=== PATIENT | male | born 1955 | race Caucasian/White ===

== ENCOUNTER 2024-07-20 17:49 | Emergency (ER) | payer MEDICARE, BC ==
[~2024-07-20] VITALS: Ht 175.3 cm; Wt 77.1 kg
[~2024-07-20 17:49] MED LIST: ASPIR 8181 MG PO; AZILECT1 MG PO; CARBIDOPA-LEVO1 EA10; ELMIRON100 MG PO; HYDROXYZINE HCL10 MG PO; LIPITOR10 MG PO; TRICOR145 MG PO
[2024-07-20 18:04] LABS: BASOPHILS % 0.6 % (0.0-1.0); EOSINOPHILS # (AUTO) 0.4 (0.0-0.4); EOSINOPHILS % 5.8 % (0.0-6.0); HEMATOCRIT 43.8 % (38.2-49.6); HEMOGLOBIN 14.2 g/dL (14.0-18.0); LYMPHOCYTES # (AUTO) 3.1 (1.0-3.2); MEAN CORPUSCULAR HEMOGLOBIN 32.3 pg (28-32); MEAN CORPUSCULAR HGB CONC 32.4 g/dL (31-35); MEAN CORPUSCULAR VOLUME 99.5 fL (81-99); MONOCYTES # (AUTO) 0.7 (0.2-0.8); MONOCYTES % 9.1 % (4.4-11.3); NEUTROPHILS % 41.4 % (38.7-80.0); PLATELET COUNT 190 x10e3/uL (140-360); RED CELL DISTRIBUTION WIDTH 12.4 % (11.7-14.4); WHITE BLOOD COUNT 7.26 x10e3/uL (4.8-10.8)
[2024-07-20 18:26] LABS: ALBUMIN 4.3 g/dL (3.5-5.0); ALBUMIN/GLOBULIN RATIO 1.3 (0.8-2.0); ALKALINE PHOSPHATASE 107 IU/L (40-150); ANION GAP 17.2 mmol/L (8-16); BILIRUBIN,TOTAL 0.9 mg/dL (0.2-1.2); BLOOD UREA NITROGEN 15 mg/dL (7-26); BUN/CREATININE RATIO 13 (6-25); CALCIUM 9.6 mg/dL (8.4-10.2); CARBON DIOXIDE 25 mmol/L (22-29); CHLORIDE 103 mmol/L (98-107); CREATINE KINASE 77 IU/L (30-200); CREATININE, SERUM 1.13 mg/dL (0.72-1.25); EST GLOMERULAR FILTRATION RATE 71 ML/MIN (>=60); GLUCOSE 100 mg/dL (74-118); LIPASE 25 U/L (8-78); POTASSIUM 4.2 mmol/L (3.5-5.1); SODIUM 141 mmol/L (136-145); TOTAL PROTEIN 7.5 g/dL (6.5-8.1)
[2024-07-20 18:31] LABS: ALANINE AMINOTRANSFERASE < 6 IU/L (0-55)
[2024-07-20 18:32] LABS: TROPONIN I < 0.001 ng/mL (0-0.300)
[2024-07-20] MEDS: Morphine 4mg INJECTION 4 MG/ML INJ IV STA (18:34)
[2024-07-20] MEDS: ONDANSETRON HCL INJ 2MG/ML 2ML 2 MG/ML VIAL IV STA (18:34)
[2024-07-20] MEDS: SODIUM CHLORIDE 0.9% 1000ML 1,000 ML IV STA (18:34)
[2024-07-20] MEDS ORDERED: IOPAMIDOL 370 MG/ML 100 ML INFUS..BTL INJ ONE (18:47)
[2024-07-20 19:12] LABS: BILIRUBIN,URINE NEGATIVE (NEGATIVE); CLARITY,URINE CLEAR (CLEAR); COLOR,URINE YELLOW (YELLOW); GLUCOSE, URINE NEGATIVE (NEGATIVE); KETONES,URINE TRACE (NEGATIVE); LEUKOCYTE ESTERASE ,URINE NEGATIVE (NEGATIVE); NITRITE,URINE NEGATIVE (NEGATIVE); PH,URINE 6 (5 - 7); PROTEIN,URINE DIPSTICK NEGATIVE (NEGATIVE); URINE UROBILINOGEN 0.2 mg/dL (0.2 - 1)
[2024-07-20 19:35] LABS: BACTERIA,URINE FEW /HPF; EPITHELIAL CELLS,URINE RARE /LPF; RBC,URINE 0-5 /HPF (0-5); WBC,URINE (MAN) 0-5 /HPF (0-5)
[2024-07-20] MEDS ORDERED: ONDANSETRON ODT4 MG PO (20:35)
[2024-07-20] MEDS ORDERED: ULTRAM 50MG50 MG PO (20:35)
[2024-07-20 20:38] VITALS: PULSE 56; RESP 18; TEMP 98.1; O2SAT 98
== END 2024-07-20 20:50 | disposition home or self-care (01) ==
LOC: ER 17:55
DX: R10.13 Epigastric pain (principal); K57.90 Diverticulosis of intestine, part unspecified, without perforation or abscess without bleeding; R11.0 Nausea; K76.0 Fatty (change of) liver, not elsewhere classified; R94.31 Abnormal electrocardiogram [ECG] [EKG]
CPT/HCPCS: 36415; 74177; 80053; 81001; 82550; 83690; 84484; 85025; 93005; 99284; J2270; J2405; J7030; Q9967